=== PATIENT | female | born 1960 | race Caucasian/White ===

== ENCOUNTER 2017-01-01 09:04 | Day surgery (SDC) | payer OTHER ==
[2016-12-27 12:43] VITALS: BMI 24.3
--- NOTE | 2016-12-31 11:14 | HP ---
Past Medical History - Admission Chief Complaint: Postmenopausal bleeding. History of Present Illness: 56 year old who reports one day of vaginal bleeding in middle of December 2016. Seen on December 12, 2016 with negative clinical exam. Pap smear done that day negative for malignancy. A pelvic ultrasound was performed on December 12, 2016 revealing a uterus 6 by 4 by 3 cm anteverted with a double thickness of 4 mm. The appearance of the endometrium was hyperechoic suggestive of an endometrial polyp. Bilateral ovaries were normal. There was a similar episode 2 years ago and an endometrial biopsy was performed and was negative for malignancy. History Source: Patient Limitations to Obtaining History: No Limitations - Past Medical History [employer]: Yes: Multiple Sclerosis (History of Multiple Sclerosis under care of Dr. Pike.) ...: 5 ...Para: 3 ...Spon : 2 - Past Surgical History Hx Myomectomy: No Hx Transabdominal Cerclage: No Additional Surgical History: LEEP - 08/09/2011 - LEEP [facility] Hank Morin MD. Other - 07/23/2011 - Colposcopy [facility] - Smoking History Smoking history: Never smoked Have you smoked in the past 12 months: No - Alcohol/Substance Use Hx Alcohol Use: Yes (OCCAS) Home Medications - Allergies Allergies/Adverse Reactions: Allergies Allergy/AdvReac Type Severity Reaction Status Date / Time No Known Allergies Allergy Verified 12/27/16 12:37 - Home Medications Home Medications: Ambulatory Orders Duloxetine HCl [Cymbalta] 60 mg PO DAILY 03/16/16 Family Disease History - Family Disease History Family Disease History: CA: Sister (Breast cancer onset age 57) Review of Systems - Review of Systems Constitutional: reports: No Symptoms, Weakness Cardiovascular: reports: No Symptoms Respiratory: reports: No Symptoms Gastrointestinal: reports: No Symptoms Genitourinary: reports: No Symptoms Neurological: reports: Pre-Existing Deficit, Unsteady Gait, Weakness Physical Exam-[employer]SEMBLIES [employer] INSTALLATIONS Constitutional: Yes: Well Nourished, No Distress, Other (Unsteady gait.) HENT: Yes: WNL Neck: Yes: WNL Cardiovascular: Yes: Regular Rate and Rhythm Respiratory: Yes: CTA Bilaterally Gastrointestinal: Yes: WNL, Soft ...Rectal Exam: Yes: WNL Pelvis: Yes: WNL External Genitalia: Yes: Normal Vaginal Exam: Yes: Normal Cervix: Yes: Normal Uterus: Yes: Normal, Freely Moveable, Anteverted, Firm Adnexa: Normal: Bilateral Breast(s): Yes: WNL Musculoskeletal: Yes: Muscle Weakness Edema: No Neurological: Yes: Weakness Imaging - Results Ultrasound: Report Reviewed (Anteverted uterus with 4 mm hyperechoic endometrium ) Assessment/Plan Postmenopausal Bleeding Plan: D and C with Hysteroscopy January 01, 2017.
--- NOTE | 2017-01-01 10:27 | HP ---
History & Physical Update - History History: No Change - Physical Physical: No Change - Assessment Assessment: No Change - Plan Plan: No Change
[2017-01-01] MEDS ORDERED: MIDAZOLAM HCL 2 MG/2 ML SINGLE DOSE VIAL ONE (10:31)
[2017-01-01] MEDS ORDERED: PROPOFOL 20 ML ONE (10:36)
[2017-01-01] MEDS ORDERED: ROCURONIUM BROMIDE 50 MG/5 ML VIAL ONE (10:38)
[2017-01-01] MEDS ORDERED: ACETAMINOPHEN 325 MG TABLET (FP) PO PRN (11:10)
[2017-01-01] MEDS ORDERED: IBUPROFEN 400 MG TABLET (FP) PO PRN (11:10)
[2017-01-01] MEDS ORDERED: ONDANSETRON 4 MG/2 ML VIAL IVPUSH PRN (11:14)
[2017-01-01] MEDS ORDERED: LACTATED RINGERS SOLUTION 1,000 ML IV SCH (11:15)
--- NOTE | 2017-01-01 11:55 | OP ---
DATE OF OPERATION: 01/01/2017 PREOPERATIVE DIAGNOSIS: Postmenopausal bleeding, endometrial polyp. POSTOPERATIVE DIAGNOSIS: Postmenopausal bleeding, endometrial polyp. OPERATION: Dilation and curettage, hysteroscopy. SURGEON: Pedro Cox MD ANESTHESIA: General, Rain Wright MD SPECIMEN: Endometrial curettings. ESTIMATED BLOOD LOSS: 10 mL. FLUIDS: 300 mL. DESCRIPTION OF PROCEDURE: Under general anesthesia, the patient was placed in the dorsal lithotomy position and prepped and draped in the usual sterile manner. Pelvic examination was performed revealing uterus that was anterior, normal size. Adnexa negative. Weighted speculum inserted in the vagina. Anterior lip of the cervix was grasped with a sharp tooth tenaculum. Uterus sounded to 5 cm. The cervical os was then dilated to allow a 5-mm hysteroscope to be inserted with saline as the distending media. A polypoid structure was noted in the midportion of the uterus. With these findings, the hysteroscope was then removed. The cervix was dilated. Curettage was performed. Polypoid tissue was removed following this procedure. The hysteroscope was then removed. No evidence of any polypoid tissue. The patient tolerated the procedure well and brought to the recovery room in satisfactory condition. PEDRO COX M.D. [id number]
[2017-01-01 12:35] VITALS: TEMP 98.1
[2017-01-01 13:03] LABS: BASOPHIL 0.8 % (0-2.0); EOSINOPHIL 1.6 % (0-4.5); MCH 29.2 pg (25.7-33.7); MCHC 32.9 g/dl (32.0-36.0); MEAN CELL VOLUME 88.6 fl (80-96); MEAN PLT VOLUME 10.4 fl (7.5-11.1); NEUTROPHILS 46.6 % (42.8-82.8); PLATELET COUNT 240 K/MM3 (134-434); RDW 12.8 % (11.6-15.6); WHITE BLOOD COUNT 8.5 K/mm3 (4.0-10.0)
[2017-01-01 13:35] VITALS: BP 117/68; PULSE 80
--- NOTE | 2017-01-02 13:45 | PATH ---
Surgical Pathology Report Patient Name: INDER GUTIÉRREZ [facility]. Rec. #: [id number] /Age/Gender: 1960 (Age: 56) / F Account: [id number] Location: [facility] Taken: 01/01/2017 Received: 01/01/2017 Reported: 01/02/2017 Physicians: Pedro Kelly M.D. Specimen(s) Received ENDOMETRIAL CURETTINGS & POLYP Clinical History Postmenopausal bleeding, endometrial polyp Final Diagnosis ENDOMETRIUM, POLYP AND CURETTINGS, CURETTAGE: ENDOMETRIAL POLYP. BACKGROUND FRAGMENTS OF ATROPHIC APPEARING ENDOMETRIUM. FRAGMENTS OF BENIGN ENDOCERVICAL TISSUE WITH SQUAMOUS METAPLASIA. Electronically Signed Jude Singh M.D. Gross Description Received in formalin labeled "endometrial polyp and curettings" is a 0.7 x 0.6 x 0.2 cm pink-mann, polypoid portion of soft tissue admixed with blood tinged mucus. The formalin is filtered and the specimen is entirely submitted in one cassette. /01/01/2017 [facility]01/01/2017
== END 2017-01-01 13:35 | disposition home or self-care (01) ==
LOC: JASU-SURG 09:04
PROVIDERS: ATTEND Obstetrics & Gynecology
PROC: 0UDB8ZX Extraction of Endometrium, Via Natural or Artificial Opening Endoscopic, Diagnostic (ICD-10-PCS; principal; 2017-01-01 10:30)
DX: N95.0 Postmenopausal bleeding (principal); N84.0 Polyp of corpus uteri
CPT/HCPCS: 36415; 85025; 88305-TC; 94760

== ENCOUNTER 2022-01-31 17:40 | Emergency (ER) | payer OTHER, MEDICARE ==
[2022-01-31 18:02] VITALS: TEMP 98.6; BMI 25.4
[2022-01-31] MEDS ORDERED: BEBTELOVIMAB (EUA) 175 MG/2 ML VIAL IVPUSH ONE (18:02)
[2022-01-31] MEDS ORDERED: ALBUTEROL SO4 2.5/IPRATROPIUM 0.5 INH SOL 3 ML VIAL.NEB. NEB ONE ×2 (19:29→19:36)
[2022-01-31 19:40] LABS: BASO % 0.3 % (0-2.0); EOS % 0.1 % (0-4.5); HEMATOCRIT 43.1 % (32.4-45.2); HEMOGLOBIN 14.6 GM/dL (10.7-15.3); LYMPH % 9.6 % (8-40); MCH 28.1 pg (25.7-33.7); MCHC 33.8 g/dl (32.0-36.0); MEAN PLT VOLUME 8.8 fl (7.5-11.1); MONO % 2.1 % (3.8-10.2); NEUT % 87.9 % (42.8-82.8); PLATELET COUNT 232 10^3/uL (134-434); RBC 5.19 M/mm3 (3.60-5.2); RDW 12.9 % (11.6-15.6); WHITE BLOOD COUNT 7.2 K/mm3 (4.0-10.0)
[2022-01-31 20:08] LABS: CALCIUM 8.9 mg/dL (8.5-10.1)
[2022-01-31 20:09] LABS: ALBUMIN 3.9 g/dl (3.4-5.0); BLOOD UREA NITROGEN 13.2 mg/dL (7-18)
[2022-01-31 20:12] LABS: CREATININE 0.8 mg/dL (0.55-1.3)
[2022-01-31 20:13] LABS: BILIRUBIN,TOTAL 0.8 mg/dL (0.2-1); TOT PROT 7.1 g/dl (6.4-8.2)
[2022-01-31 20:37] VITALS: BP 109/64; PULSE 116
== END 2022-01-31 21:11 | disposition home or self-care (01) ==
LOC: JER 17:40
PROC: 3E033GC Introduction of Other Therapeutic Substance into Peripheral Vein, Percutaneous Approach (ICD-10-PCS; principal; 2022-01-31)
PROC: 3E0F7GC Introduction of Other Therapeutic Substance into Respiratory Tract, Via Natural or Artificial Opening (ICD-10-PCS; 2022-01-31)
DX: U07.1 COVID-19 (principal)
CPT/HCPCS: 36415; 71045-TC-FY; 80053; 85025; 86140; 99284-25; M0222; Q0222